=== PATIENT | female | born 1970 | race Caucasian/White ===

== ENCOUNTER 2024-10-27 06:55 | Day surgery (SDC) | payer MEDICAID, SELFPAY ==
[2024-10-26 09:01] VITALS: BMI 37.8
[2024-10-27] VITALS (11 sets, daily range): BP systolic 107–131; BP diastolic 65–88; PULSE 74–93; RESP 12–20; TEMP 36.3–36.6; O2SAT 92–96; BMI 37.3
[2024-10-27] MEDS: DiphenhydrAMINE INJ 50 MG/ML VIAL 25 MG IV (07:31)
[2024-10-27] MEDS: fentaNYL CIT INJ 50 mCg/ML AMP 2ML (ASD USE ONLY) IV (07:37)
[2024-10-27] MEDS: SIMETHICONE 40 MG/0.6 ML ORAL SYRINGE PO (07:37)
[2024-10-27] MEDS: MIDAZOLAM INJ 1 MG/ML VIAL 2 ML (ASD USE ONLY) 2 MG IV (07:37)
== END 2024-10-27 08:48 | disposition home or self-care (01) ==
PROVIDERS: PCP Physician Assistant; Referring Provider Surgery; Visit Provider Surgery
PROC: 0DBE8ZX Excision of Large Intestine, Via Natural or Artificial Opening Endoscopic, Diagnostic (ICD-10-PCS; CPT 45380; principal; 2024-10-27 07:30)
DX: Z12.11 Encounter for screening for malignant neoplasm of colon (principal); K64.1 Second degree hemorrhoids; K64.4 Residual hemorrhoidal skin tags
CPT/HCPCS: 45385; J1200; J2250; J3010; A9270